=== PATIENT | male | born 1960 | race Hispanic/Latino ===

== ENCOUNTER 2020-09-03 08:08 | Day surgery (SDC) | payer BC ==
[2020-09-03 08:43] VITALS: TEMP 97.8
[2020-09-03] MEDS ORDERED: Ringers Lactate 1,000 ML IV ONE (08:48)
[2020-09-03] MEDS ORDERED: propofoL 200 MG/20 ML VIAL IV ONE (09:16)
[2020-09-03] MEDS ORDERED: LIDOCAINE 1% MPF 5 ML VIAL ONE (09:16)
--- NOTE | 2020-09-03 09:22 | ENDO RPT ---
[address], [address] COLONOSCOPY PROCEDURE REPORT EXAM DATE: 09/03/2020 PATIENT NAME: Gopi Angel MR #: [id number] BIRTHDATE: 1960 ATTENDING: Raad Jamison MD STATUS: outpatient EXECUTIVE CANDIDATE DEVELOPER: Ian Ragsdale CST and Susan Toure RN INDICATIONS: The patient is a 60 yr old Male here for a colonoscopy due to colon cancer screening PROCEDURE PERFORMED: Colonoscopy MEDICATIONS: Per Anesthesia. ESTIMATED BLOOD LOSS: None CONSENT: The patient understands the risks and benefits of the procedure and understands that these risks include, but are not limited to: sedation, allergic reaction, infection, perforation and/or bleeding. Alternative means of evaluation and treatment include, among others: physical exam, x-rays, and/or surgical intervention. The patient elects to proceed with this endoscopic procedure. DESCRIPTION OF PROCEDURE: During intra-op preparation period all mechanical medical equipment was checked for proper function. Hand hygiene and appropriate measures for infection prevention was taken. Procedure, possible complications, alternatives including, but not limited to possibility of bleeding, perforation, tear, infection, sepsis, need for surgery, need for blood transfusion, were explained to the patient. After the risks, benefits and alternatives of the procedure were thoroughly explained, Informed consent was verified, confirmed and timeout was successfully executed by the treatment team. The patient was placed in the left lateral position. A digital rectal exam was performed and revealed external hemorrhoids. After appropriate level of anesthesia, the scope was passed. The EC-[id number] ([id number] endoscope was introduced through the anus and advanced to the cecum, which was identified by transillumination from the light source, the appendix, and the ileocecal valve. The quality of the prep was good. The instrument was then slowly withdrawn as the colon was fully examined. Scope withdrawal time was . COLON FINDINGS: Diverticula was found in the descending colon. Retroflexed views revealed no abnormalities. The scope was then completely withdrawn from the patient and the procedure terminated. ADVERSE EVENTS: There were no complications. IMPRESSIONS: 1. Diverticula in the descending colon 2. External hemorrhoids 3. Internal hemorrhoids RECOMMENDATIONS: follow-up: office 1-2 week(s) RECALL: Return in 5-10 year(s) for Colonoscopy. Raad Jamison MD eSigned: Raad Jamison MD 09/03/2020 9:22 AM cc: Gerald Lewis MD CPT CODES: ICD9 CODES:
[2020-09-03 09:40] VITALS: O2SAT 100
[2020-09-03 09:46] VITALS: BP 113/68
== END 2020-09-03 09:55 | disposition home health service (06) ==
LOC: OR 08:08
PROVIDERS: ATTEND Surgery
PROC: 0DJD8ZZ Inspection of Lower Intestinal Tract, Via Natural or Artificial Opening Endoscopic (ICD-10-PCS; principal; 2020-09-03 09:15)
DX: K57.30 Diverticulosis of large intestine without perforation or abscess without bleeding (principal); R10.32 Left lower quadrant pain; R19.7 Diarrhea, unspecified; K80.20 Calculus of gallbladder without cholecystitis without obstruction; K40.90 Unilateral inguinal hernia, without obstruction or gangrene, not specified as recurrent; K44.9 Diaphragmatic hernia without obstruction or gangrene; Z86.010 Personal history of colon polyps; K64.4 Residual hemorrhoidal skin tags; K64.8 Other hemorrhoids
CPT/HCPCS: 45378; J2704; J7120